=== PATIENT | female | born 1955 | race Caucasian/White ===

== ENCOUNTER → 2022-01-30 08:34 | Outpatient (CLI) | payer MEDICARE, OTHER, SELFPAY ==
--- NOTE | ~2022-01-30 | CT_ITS ---
EXAMINATION: CT abdomen pelvis wo/w con DATE: 01/30/2022 09:33 INDICATION: Gross hematuria TECHNIQUE: Computed tomography (CT) of the abdomen and pelvis was performed without and subsequently with 130 CC Omnipaque 350 intravenous contrast. Automated exposure control and iterative reconstructi on technique were employed. Exam dose: 1893.55 mGy-cm total exam DLP. COMPARISON: 01/30/2022 KUB FINDINGS: Bibasilar discoid atelectasis or more likely scarring. No consolidation at the lung bases. Heart size is within normal range. No pericardial or pleural effusion. There are multiple faceted calcified gallstones. No gallbladder wall thickening or pericholecystic fl uid or fat stranding. Hepatic and splenic calcified granulomas consistent with old granulomatous disease. Normal morphology of the adrenal glands. There is accumulation of contrast material within the renal medullary areas suggesting bilateral medu llary sponge kidneys. There are several punctate nonobstructing right renal calculi. There is an 11 mm right renal pelvic c alculus with attenuation of 1247 Hounsfield units. There is soft tissue fat infiltration surrounding the right renal pelvis and proximal right ureter which may indicate infection There are approximately 4 nonobstructing punctate left renal calculi. No left or right ureteral calculus. 3.6 cm lower pole right renal cyst. 8 mm left renal cyst. Normal appendix. Diverticulosis of the colon; no CT evidence of diverticulitis. No bowel obstruction, bowel wall thickening, pneumatosis or intraperitoneal free air. Normal caliber of the abdominal aorta. No intraperitoneal or retroperitoneal or pelvic mass lesion or adenopathy or ascites. The urinary bladder is unremarkable. Status post hysterectomy. Intramedullary nail and compression screw and proximal right femur. Diffuse idiopathic skeletal hyperostosis of the thoracic spine. Diffuse osteopenia. No suspicious osteolytic or osteoblastic lesions. 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 Reviewed, dictated and finalized at location A. IMPRESSION: Bilateral medullary sponge kidneys with mild bilateral nephrocalci nosis 11 mm right renal pelvic calculus (1247 Hounsfield units) Soft tissue infiltration surrounding right renal pelvis and proximal right uret er suggesting possible infection Bilateral renal cysts Cholelithiasis Hepatic and splenic calcified granulomas Diverticulosis of colon; no CT evidence of diverticulitis Normal appendix Status post hysterectomy
--- NOTE | ~2022-01-30 | XR_ITS ---
EXAMINATION: XR abdomen/kub 1V INDICATION: Gross hematuria TECHNIQUE: Supine views of the abdomen were obtained on 2 radiographs. COMPARISON: CT from today FINDINGS: There is a 1.6 cm stone in the right renal pelvis. Bowel contents project over the kidneys limiting sensitivity for renal stones. Punctate nephrolithiasis seen on CT is not definitely identifi ed. The bowel gas pattern is normal. There are phleboliths in the pelvis. Cholelithiasis is noted. Th ere is antegrade intramedullary ignacio and interlocking intratrochanteric screw fixation of the right fe mur. There is mild osteoarthritis of the hips. IMPRESSION: 1. 1.6 cm stone in the right renal pelvis. Reviewed, dictated and finalized at location F.
[2022-01-30 09:06] LABS: Estimated Glomerular Filt Rate 55
== END ==
PROVIDERS: PCP Family Medicine; Visit Provider Nurse Practitioner Family
DX: R31.0 Gross hematuria (principal); N20.0 Calculus of kidney; N28.1 Cyst of kidney, acquired; K80.20 Calculus of gallbladder without cholecystitis without obstruction; K57.30 Diverticulosis of large intestine without perforation or abscess without bleeding
CPT/HCPCS: 74018; 74178; Q9967

== ENCOUNTER → 2022-02-13 11:02 | Outpatient (CLI) | payer MEDICARE, OTHER, SELFPAY ==
--- NOTE | ~2022-02-13 | XR_ITS ---
EXAM: XR abdomen/kub 1V HISTORY: Kidney stone COMPARISON: CT abdomen and pelvis 01/30/2022 FINDINGS: Clear lung bases. Normal bowel gas pattern. No organomegaly. Cholelithiasis. Right uretera l stent, in good position. 13 mm calcification projecting over the right inferior pole. Remaining pun ctate right renal calcifications seen in the prior CT are not radiographically visible. Punctate left inferior pole calcification, the remaining left calculi seen in the prior CT are not radiographicall y apparent. Multiple pelvic phleboliths. Degenerative lumbar changes. Right proximal femoral fixation . IMPRESSION: Right ureteral stent, in good position. The renal stone previously detected in the renal pelvis may h ave shifted into an inferior pole calyx. Reviewed, dictated and finalized at location K. IMPRESSION: Right ureteral stent, in good position. The renal stone previously detected in the renal pelvis may have shifted into an inferior pole calyx.
== END ==
PROVIDERS: PCP Hospitalist; Visit Provider Urology
DX: N20.0 Calculus of kidney (principal)
CPT/HCPCS: 74018

== ENCOUNTER → 2022-04-10 12:34 | Outpatient (CLI) | payer MEDICARE, OTHER, SELFPAY ==
--- NOTE | ~2022-04-10 | US_ITS ---
EXAMINATION: US renal BI DATE: 04/10/2022 13:13 INDICATION: Right kidney stone TECHNIQUE: Multiple grayscale and Doppler ultrasound images of the kidneys were obtained. COMPARISON: CT, 01/30/2022 FINDINGS: The right kidney measures 13.1 x 4.5 x 5.4 cm and contains a 3.6 cm cyst. The left kidney m easures 10.8 x 5.0 x 5.6 cm. A 6 mm echogenic focus of the left kidney lower pole is noted. The kidne ys demonstrate normal parenchymal echogenicity. There is no hydronephrosis. The bladder is normal. IMPRESSION: 1. No right kidney stone identified. 2. 6 mm echogenic focus of the left kidney lower pole, possible nonobstructing stone. Reviewed, dictated and finalized at location B.
--- NOTE | ~2022-04-10 | XR_ITS ---
EXAMINATION: XR abdomen/kub 1V INDICATION: Right nephrolithiasis TECHNIQUE: Supine views of the abdomen were obtained on 2 radiographs. COMPARISON: 02/13/2022 FINDINGS: The right internal ureteral stent has been removed. A stone previously seen in the right ki dney lower pole is not definitely identified. No stone fragments are identified along the expected co urse of the ureter. Cholelithiasis is noted. There are phleboliths of the pelvis. There is antegrade intramedullary ignacio and interlocking intratrochanteric screw fixation of the right femur. IMPRESSION: 1. No definite urolithiasis identified. Reviewed, dictated and finalized at location B.
== END ==
PROVIDERS: PCP Hospitalist; Visit Provider Urology
DX: N20.0 Calculus of kidney (principal)
CPT/HCPCS: 74018; 76775

== ENCOUNTER → 2022-05-16 12:50 | Outpatient (CLI) | payer MEDICARE, OTHER, SELFPAY ==
--- NOTE | ~2022-05-16 | MM_ITS ---
EXAMINATION: MM screening [facility] BI w chavez HISTORY: Screening mammogram TECHNIQUE: Craniocaudal and mediolateral oblique 3-D tomosynthesis images were obtained and synthetic 2-D images were generated. CAD analysis was submitted and interpreted. COMPARISON: 08/25/2017, 04/26/2013 BREAST PARENCHYMAL COMPOSITION: There are scattered areas of fibroglandular density. FINDINGS: There is no suspicious mass, calcification, or architectural distortion to suggest malignan cy in either breast. There has been no suspicious interval change. IMPRESSION: 1. No mammographic evidence of malignancy. 2. Recommend routine screening mammography in one year. BI-RADS Category 1: Negative Reviewed, dictated and finalized at location A.
== END ==
PROVIDERS: PCP Hospitalist; Visit Provider Hospitalist
DX: Z12.31 Encounter for screening mammogram for malignant neoplasm of breast (principal)
CPT/HCPCS: 77063; 77067

== ENCOUNTER → 2022-06-17 13:05 | Outpatient (CLI) | payer MEDICARE, OTHER, SELFPAY ==
--- NOTE | ~2022-06-17 | DEXA_ITS ---
Bone Density Report Name: THAD PATTON Age: 66 Sex: Female Ethnicity: White Date of : 1955 Indication: osteopenia; height loss; prior fracture; hysterectomy; postmenopausal Referring Provider: OLIVIA, FÁTIMA Alexander Study: Bone densitometry was performed. Exam Date: June 17, 2022 Accession number: [id number] Bone Density: Region BMD T-score Z-score Classification AP Spine (L1-L4) 0.958 -0.8 1.2 Normal Femoral Neck (Left) 0.729 -1.1 0.6 Osteopenia Total Hip (Left) 0.724 -1.8 -0.4 Osteopenia World Health Organization criteria for BMD impression classify patients as: Normal (T-score at or above -1.0), Osteopenia (T-score between -1.0 and -2.5), or Osteoporosis (T-score at or below -2.5). 10-year Fracture Risk: FRAX not reported because: Prior hip or vertebral fracture Previous Exams: Region Exam Age BMD T-score BMD Change BMD Change Date g/cm2 vs Baseline vs Previous AP Spine(L1-L4) 06/17/2022 66 0.958 -0.8 0.028* 0.028* 08/25/2017 61 0.930 -1.1 Total Hip(Left) 06/17/2022 66 0.724 -1.8 -0.184 -0.016 08/25/2017 61 0.741 -1.7 -0.168 -0.168 06/26/2004 48 0.908 -0.3 *Denotes significance at 95% confidence level, LSC for AP Spine = 0.022 g/cm2, LSC for Total Hip = 0.027 g/cm2 Clinical Information Provided by Patient: Have had a previous hip or vertebral fracture Has had a low trauma fracture Has used the following medications: Vitamin D, Calcium Has the following medical conditions: Hysterectomy Patient maximum height was 70 Menopause Age: 46 No regular weight bearing exercise Drinks caffeinated beverages Onset of menses at age 11 Number of children 3 Impression: The patient has low bone mass, based on the Left Total Hip T-score. The patient has risk factors, including: previous fracture. No significant bone loss was observed. Discussion: INCREASED RISK OF FRACTURE DUE TO HISTORY OF FRACTURE. The patient's previous fracture puts the patient at high risk of a future fracture. In untreated patients, the risk of osteoporotic fracture increases approximately two-fold for each 1.0 SD decrease in T-score. Low bone density is not the only risk factor for fracture; also consider factors such as patient's age, frailty or poor health, risk of falling, risk of injury, previous osteoporotic fracture, family history of osteoporosis, cigarette smoking, low body weight, etc. Not everyone with a low trauma fracture has osteoporosis; osteomalacia and other metabolic bone di
== END ==
PROVIDERS: PCP Hospitalist; Visit Provider Hospitalist
DX: Z78.0 Asymptomatic menopausal state (principal); M85.852 Other specified disorders of bone density and structure, left thigh
CPT/HCPCS: 77080

== ENCOUNTER → 2022-10-09 12:59 | Outpatient (CLI) | payer MEDICARE, OTHER, SELFPAY ==
--- NOTE | ~2022-10-09 | XR_ITS ---
EXAM: XR abdomen/kub 1V DATE: 10/09/2022 13:19 HISTORY: Kidney stones . COMPARISON: 04/10/2022, renal ultrasound 04/10/2022. FINDINGS: Clear lung bases. Normal bowel gas pattern. No organomegaly. Pelvic phleboliths. 2 mm calc ification projecting over the left lower pole. 4 mm constipation projecting over the right upper pole Lumbar degenerative disc disease. Partially visualized right femoral hardware. IMPRESSION: Bilateral nephrolithiasis. Reviewed, dictated and finalized at location K. O INTERFERENCE EXPERT IMPRESSION: Bilateral nephrolithiasis.
== END ==
PROVIDERS: PCP Hospitalist; Visit Provider Urology
DX: N20.0 Calculus of kidney (principal)
CPT/HCPCS: 74018

== ENCOUNTER → 2023-03-12 09:30 | Outpatient (CLI) | payer MEDICARE, OTHER, SELFPAY ==
--- NOTE | ~2023-03-12 | XR_ITS ---
Supine and upright views of the abdomen Clinical history: Kidney stone COMPARISON: 10/09/2022 Findings: Bowel gas pattern is nonspecific. No evidence for obstruction or free air. There are probab le calcified right upper quadrant gallstones present. Probable small bilateral renal stones, similar to prior exam. Right hip orthopedic hardware is unchanged. Impression: Probable small bilateral renal stones, similar to prior exam. Cholelithiasis. Reviewed, dictated and finalized at location . Impression: Probable small bilateral renal stones, similar to prior exam. Cholelithiasis.
== END ==
PROVIDERS: PCP Hospitalist; Visit Provider Urology
DX: N20.0 Calculus of kidney (principal); K80.20 Calculus of gallbladder without cholecystitis without obstruction
CPT/HCPCS: 74018

== ENCOUNTER → 2023-08-22 11:38 | Outpatient (CLI) | payer MEDICARE, OTHER, SELFPAY ==
--- NOTE | ~2023-08-22 | MM_ITS ---
EXAMINATION: MM screening cl BI w chavez HISTORY: Screening mammogram TECHNIQUE: Craniocaudal and mediolateral oblique 3-D tomosynthesis images were obtained and synthetic 2-D images were generated. CAD analysis was submitted and interpreted. COMPARISON: 05/16/2022, 08/25/2017 bilateral screening mammogram examinations BREAST PARENCHYMAL COMPOSITION: There are scattered areas of fibroglandular density. FINDINGS: There is no evidence of suspicious mass, calcification, or architectural distortion to sugg est malignancy in either breast. There has been no suspicious interval change. IMPRESSION: 1. No mammographic evidence of malignancy. 2. Recommend routine screening mammography in one year. BI-RADS Category 1: Negative Reviewed, dictated and finalized at location B. ASSISTANT
== END ==
PROVIDERS: PCP Hospitalist; Visit Provider Hospitalist
DX: Z12.31 Encounter for screening mammogram for malignant neoplasm of breast (principal)
CPT/HCPCS: 77063; 77067

== ENCOUNTER 2023-10-08 08:59 | Outpatient (CLI) | payer MEDICARE, OTHER, SELFPAY ==
--- NOTE | ~2023-10-08 | XR_ITS ---
Supine and upright views of the abdomen Clinical history: Kidney stone COMPARISON: 03/12/2023 Findings: Bowel gas pattern is nonspecific. No evidence for obstruction or free air. Questionable tin y bilateral renal stones. Calcified gallstones present. Osseous structures are intact. Impression: Questionable tiny bilateral renal stones. Cholelithiasis. Reviewed, dictated and finalized at [facility]. NICAL SALES SUPPORT SPECIALIST Impression: Questionable tiny bilateral renal stones. Cholelithiasis.
== END 2023-10-08 09:00 ==
LOC: MICIMG 09:02
PROVIDERS: PCP Hospitalist; Visit Provider Urology
DX: N20.0 Calculus of kidney (principal); K80.20 Calculus of gallbladder without cholecystitis without obstruction
CPT/HCPCS: 74018

== ENCOUNTER 2023-10-24 09:14 | Outpatient (CLI) | payer MEDICARE, OTHER, SELFPAY ==
--- NOTE | ~2023-10-24 | US_ITS ---
EXAMINATION: US retroperitoneal comp DATE: 10/24/2023 10:30 INDICATION: Kidney stones TECHNIQUE: Multiple ultrasound grayscale images of the kidneys were obtained. COMPARISON: 04/10/2022 FINDINGS: The right kidney measures 11.0 x 4.5 x 5.0 cm. The left kidney measures 10.6 x 5.5 x 3.8 cm. The kidn eys demonstrate normal echogenicity. 3.1 cm anechoic right renal cyst. There is no hydronephrosis in either kidney. 6 mm echogenic focus at the lower pole of the left kidney potentially representing a renal stone although there is no posterior acoustic shadowing for more definitive determination. The bladder is normal. IMPRESSION: 1. Persistent 6 mm echogenic focus in the left kidney, potentially nonobstructing renal stone. No hy dronephrosis in either kidney. Reviewed, dictated and finalized at location A. ING IN MACHINE TENDER HELPER IMPRESSION: 1. Persistent 6 mm echogenic focus in the left kidney, potentially nonobstruct ing renal stone. No hydronephrosis in either kidney.
== END 2023-10-24 09:15 ==
LOC: MICIMG 09:16
PROVIDERS: PCP Hospitalist; Visit Provider Urology
DX: N20.0 Calculus of kidney (principal)
CPT/HCPCS: 76770

== ENCOUNTER 2024-03-05 09:26 | Outpatient (CLI) | payer MEDICARE, OTHER, SELFPAY ==
--- NOTE | ~2024-03-05 | XR_ITS ---
XR abdomen/kub 1V 03/05/2024 09:52 INDICATION: Kidney stone TECHNIQUE: KUB COMPARISON: 10/08/2023 FINDINGS: Bowel gas pattern is normal. There are gallstones. There are calcified granulomas of the sp julio c. There are pelvic phleboliths. There are left renal stones. There is no evidence of free air, ma ss, organomegaly, ascites or obstruction. No abnormal calculi are seen. The bones appear intact. IMPRESSION: 1: Left nephrolithiasis. 2: Cholelithiasis. Reviewed, dictated and finalized at location B.
== END 2024-03-05 09:27 ==
LOC: MICIMG 09:30
PROVIDERS: PCP Hospitalist; Visit Provider Urology
DX: N20.0 Calculus of kidney (principal)
CPT/HCPCS: 74018

== ENCOUNTER 2024-10-20 09:08 | Outpatient (CLI) | payer MEDICARE, OTHER, SELFPAY ==
--- NOTE | ~2024-10-20 | US_ITS ---
US renal BI Ordering provider: Sim Mclain MD History: . KIDNEY STONE . Comparison: None. Technique: Ultrasound bilateral kidneys. Findings: RIGHT KIDNEY: Measures 12.4x 4.6x 6.7 cm in length which is normal in size. Inferior lateral cyst is seen measuring 3.4 x 3.2 x 4.1 cm. No renal mass or visualized echogenic stones. Otherwise, normal ec hotexture and contour. No hydronephrosis. Normal renal cortical thickness. LEFT KIDNEY: Measures 10.8x 5.1x 4.8 cm in length which is normal in size. No renal cysts. No renal m ass or visualized echogenic stones. Otherwise, normal echotexture and contour. No hydronephrosis. Nor mal renal cortical thickness. 0.7 x 0.6 cm echogenic area seen inferiorly which may be a stone. Follo w-up advised. BLADDER: Underfilled. IMPRESSION: Right renal cyst. Highly suggestive stone in the inferior pole of the left kidney. Reviewed, dictated and finalized at location A. WEB DEVELOPER
== END 2024-10-20 09:09 | disposition home or self-care (01) ==
LOC: MICIMG 09:10
PROVIDERS: PCP Hospitalist; Visit Provider Urology
DX: N20.0 Calculus of kidney (principal); N28.1 Cyst of kidney, acquired
CPT/HCPCS: 76775